=== PATIENT | female | born 1990 | race Hispanic/Latino ===

== ENCOUNTER 2017-02-14 16:30 | Emergency (ER) | payer OTHER ==
--- NOTE | 2017-02-14 16:39 | ED PDOC ---
HPI: Abdomen Time Seen by Provider: 02/14/17 16:38 Chief Complaint (Nursing): Abdominal Pain Chief Complaint (Provider): abdominal pain, vomiting History Per: Patient Additional Complaint(s): 27-year-old female presents to emergency department with generalized abdominal pain and vomiting that started earlier today. She denies any consumption of any food that could've cause stomach upset. She has been unable to keep down anything including sips of water. Patient states that last week her fianc was sick with vomiting and diarrhea. Patient denies any diarrhea at this time. No recent travel. She rates the abdominal pain as 10 out of 10 and describes it as cramping. No associated vaginal bleeding, discharge, dysuria or hematuria, no fever or chills. Past Medical History Reviewed: Historical Data, Nursing Documentation, Vital Signs Vital Signs: Last Vital Signs Temp 98.3 F 02/14/17 16:35 Pulse 121 H 02/14/17 16:35 Resp 21 02/14/17 16:35 BP 110/47 L 02/14/17 16:35 Pulse Ox 100 02/14/17 19:55 - Medical History PMH: No Chronic Diseases - Surgical History Other surgeries: breast augmentation - Family History Family History: States: No Known Family Hx - Living Arrangements Living Arrangements: With Family - Social History Current smoker - smoking cessation education provided: No Alcohol: Social Drugs: Denies - Allergies Allergies/Adverse Reactions: Allergies Allergy/AdvReac Type Severity Reaction Status Date / Time No Known Allergies Allergy Verified 02/14/17 16:34 Review of Systems ROS Statement: Except As Marked, All Systems Reviewed And Found Negative Constitutional: Negative for: Fever, Chills Respiratory: Negative for: Cough Gastrointestinal: Positive for: Nausea, Vomiting, Abdominal Pain. Negative for : Diarrhea, Constipation, Rectal Pain Genitourinary Female: Negative for: Dysuria, Frequency, Incontinence, Hematuria Physical Exam - Reviewed Nursing Documentation Reviewed: Yes Vital Signs Reviewed: Yes - Physical Exam Appears: Positive for: Well, Non-toxic, No Acute Distress Skin: Negative for: Rash Eye Exam: Positive for: Normal appearance, EOMI, PERRL Cardiovascular/Chest: Positive for: Regular Rate, Rhythm Respiratory: Positive for: Normal Breath Sounds Gastrointestinal/Abdominal: Positive for: Tenderness (Mild tenderness in all 4 quadrants with no rebound or guarding, no distention, normoactive bowel sounds in all 4 quadrants) Back: Negative for: L CVA Tenderness, R CVA Tenderness Neurologic/Psych: Positive for: Alert, Oriented - Laboratory Results Result Diagrams: 02/14/17 18:22 02/14/17 18:22 Urine POC: Negative Urine dip results: Positive for: Blood (small), Ketones. Negative for: Leukocyte Esterase, Nitrate, Glucose, Bilirubin, Protein - ECG O2 Sat by Pulse Oximetry: 100 Pulse Ox Interpretation: Normal - Other Rad Abd US X-Ray: Read By Radiologist X-Ray Interpretation: no acute finding Medical Decision Making Medical Decision Makin27 year old with vomiting and abdominal pain Plan: Urine test Urine dip CBC CMP Lipase Abdominal ultrasound IV fluids IV Zofran IV Pepcid IV Toradol Nausea is improved after meds given however patient states that she still has pain that she rates as 4/10. Repeat abdominal exam demonstrates persistent mild diffuse tenderness, CT abdomen and pelvis ordered for further evaluation. Disposition - Clinical Impression Clinical Impression: Abdominal pain - Patient ED Disposition Is Patient to be Admitted: Transfer of Care - Disposition Disposition: Transfer of Care Disposition Time: 20:00 Condition: FAIR Patient Signed Over To: Manasa Gunter Handoff Comments: Case was signed out to KELL Gunter pending CT and final disposition Results - Lab Results Lab Results: 02/14/17 02/14/17 18:22 18:22 WBC 10.3 RBC 4.88 Hgb 15.0 Hct 45.2 MCV 92.6 MCH 30.7 MCHC 33.2 RDW 12.9 Plt Count 145 MPV 10.3 Neut % (Auto) 91.7 H Lymph % (Auto) 3.9 L Doddridge % (Auto) 4.2 Eos % (Auto) 0.1 Baso % (Auto) 0.1 Neut # 9.4 H Lymph # 0.4 L Doddridge # 0.4 Eos # 0.0 Baso # 0.0 Neutrophils % (Manual) 84 H Band Neutrophils % 6 H Lymphocytes % (Manual) 4 L Monocytes % (Manual) 6 Platelet Estimate Slightly decreased L Large Platelets Present Anisocytosis (manual) Slight Macrocytosis (manual) Slight Tear Drop Cells Slight Ovalocytes Slight Sodium 137 Potassium 4.5 Chloride 104 Carbon Dioxide 21 L Anion Gap 17 BUN 18 H Creatinine 0.7 Est GFR ( Amer) > 60 Est GFR (Non-Af Amer) > 60 Random Glucose 102 Calcium 9.1 Total Bilirubin 1.2 AST 40 H ALT 38 Alkaline Phosphatase 39 Total Protein 7.4 Albumin 4.7 Globulin 2.7 Albumin/Globulin Ratio 1.7 Lipase 30
[2017-02-14] MEDS ORDERED: Sodium Chloride 0.9% 1,000 ML IV STA ×2 (17:38→19:55)
[2017-02-14 18:31] LABS: BASO % 0.1 % (0.0-2.0); EOS % 0.1 % (0.0-4.0); HEMATOCRIT 45.2 % (34.0-47.0); LYMPH # 0.4 K/uL (1.0-4.3); LYMPH % 3.9 % (20.0-40.0); MEAN CELL VOLUME 92.6 fl (81.0-99.0); MEAN CORPUSCULAR HEMOGLOBIN 30.7 pg (27.0-31.0); MEAN CORPUSCULAR HGB CONC 33.2 g/dL (33.0-37.0); MEAN PLATELET VOLUME 10.3 fl (7.2-11.7); MONO # 0.4 K/uL (0.0-0.8); MONO % 4.2 % (0.0-10.0); NEUT # 9.4 K/uL (1.8-7.0); NEUT % 91.7 % (50.0-75.0); PLATELET COUNT 145 K/uL (130-400); RED CELL DISTRIBUTION WIDTH 12.9 % (11.5-14.5); WHITE BLOOD COUNT 10.3 K/uL (4.8-10.8)
[2017-02-14 18:41] LABS: ALB/GLOB RATIO 1.7 (1.0-2.1); ALKALINE PHOSPHATASE 39 U/L (38-126); ALT/SGPT 38 U/L (9-52); AST/SGOT 40 U/L (14-36); BILIRUBIN,TOTAL 1.2 mg/dl (0.2-1.3); BLOOD UREA NITROGEN 18 mg/dl (7-17); CALCIUM 9.1 mg/dL (8.4-10.2); CARBON DIOXIDE 21 mmol/L (22-30); CHLORIDE 104 mmol/L (98-107); GFR AFRICAN-AMERICAN > 60; GLUCOSE,RANDOM 102 mg/dL (65-105); LIPASE 30 U/L (23-300); SODIUM 137 mmol/l (132-148); TOTAL PROTEIN 7.4 G/DL (6.3-8.2)
[2017-02-14 18:42] LABS: POTASSIUM 4.5 MMOL/L (3.6-5.0)
--- NOTE | 2017-02-14 19:32 | US ---
EXAM: US Abdomen Complete CLINICAL HISTORY: 27 years old, female; Pain; Abdominal pain; Epigastric; Additional info: Upper abd pain, vomiting TECHNIQUE: Real-time ultrasound of the abdomen (complete) with image documentation. EXAM DATE/TIME: 02/14/2017 5:38 PM COMPARISON: No relevant prior studies available. FINDINGS: Gallbladder: Within normal limits in appearance, without evidence of gallstones, significant gallbladder wall thickening, or pericholecystic fluid. Reportedly negative sonographic Davidson's sign. Common bile duct: Does not appear abnormally dilated, measuring less than 6 mm in diameter. Liver: Within normal limits in appearance. Measures 14 cm in length. Normal flow seen in the main portal vein on color and Doppler imaging. Pancreas: Imaged portions appear unremarkable. Right kidney: Within normal limits in appearance. Measures 10.7 cm in length. No evidence of hydronephrosis. Left kidney: Within normal limits in appearance. Measures 10.2 cm in length. No evidence of hydronephrosis. Spleen: Within normal limits in appearance. Measures 10.2 cm in length. Aorta: Imaged portions appear unremarkable. IVC: Imaged portions appear unremarkable. IMPRESSION: No significant abnormality identified. No evidence of gallstones or cholecystitis. See above for remaining findings.
[2017-02-14 19:41] LABS: NEUTROPHIL 84 % (42-75); TOTAL CELLS COUNTED 100
[2017-02-14 19:43] LABS: LARGE PLATELETS PRESENT
[2017-02-14 20:13] VITALS: BP 106/62; PULSE 97; RESP 18; TEMP 98.4; O2SAT 99
[2017-02-14] MEDS ORDERED: Sucralfate 1 gm/10 ml Oral Susp UD PO STA (23:33)
[2017-02-15] MEDS ORDERED: HYDROmorphone 0.5 mg/0.5 ml ISec IVP STA (00:17)
--- NOTE | 2017-02-15 00:21 | ED PDOC ---
- Laboratory Results Result Diagrams: 02/14/17 18:22 02/14/17 18:22 Urine POC: Negative - ECG O2 Sat by Pulse Oximetry: 99 - Progress ED Course And Treament: MOrphine 2mg x 2;zofran 4mg iv x1 dose pateint has persistent pain carafate 1 gm po x 1 dose dilaudid 0.5mg iv x 1 dose IMPRESSION: - Underdistention versus wall thickening/mild focal gastritis involving the distal stomach. Recommend clinical correlation. - Otherwise, no evidence of significant acute process. - Findings compatible with an involuting cystic lesion in the right ovary. - See above for remaining findings. Thank you for allowing us to participate in the care of your patient Disposition - Clinical Impression Clinical Impression: Abdominal pain - POA Present On Arrival: None - Disposition Referrals: [facility] [Outside] Jamison Elise MD, PhD [Staff Provider] - Disposition: Routine/Home Disposition Time: 00:19 Condition: FAIR Prescriptions: Ondansetron ODT [Zofran ODT] 4 mg PO Q8 PRN #10 odt PRN Reason: Nausea/Vomiting Pantoprazole Sodium [Protonix] 40 mg PO DAILY #14 ect Ranitidine HCl [Zantac 75] 75 mg PO Q12 PRN #14 tablet PRN Reason: Pain, Moderate (4-7) Instructions: Gastritis (ED) Forms: [facility] ED School/Work Excuse
--- NOTE | 2017-02-15 10:34 | CT ---
PROCEDURE: CT Abdomen and Pelvis with contrast HISTORY: diffuse abd pain, vomiting COMPARISON: None available TECHNIQUE: Contrast dose: 90 mL Visipaque 320 Radiation dose: Total exam DLP = 570.62 mGy-cm. This CT exam was performed using one or more of the following dose reduction techniques: Automated exposure control, adjustment of the mA and/or kV according to patient size, and/or use of iterative reconstruction technique. FINDINGS: LOWER THORAX: No visible consolidation, pleural effusion, or pneumothorax. Partially imaged bilateral breast prosthesis. LIVER: Hypoattenuation of the liver compatible with hepatic steatosis. Borderline hepatomegaly. GALLBLADDER AND BILE DUCTS: Unremarkable. PANCREAS: Unremarkable. SPLEEN: Unremarkable. ADRENALS: Unremarkable. KIDNEYS AND URETERS: The kidneys enhance symmetrically. No hydronephrosis or obstructing calculus identified. VASCULATURE: No aortic aneurysm. BOWEL: Stomach is nondistended. Wall thickening involving the distal stomach may be exaggerated by under distention versus mild focal gastritis. Correlate clinically. Lack of oral contrast limits evaluation for bowel pathology. Bowel loops appear within normal limits of caliber without evidence of obstruction. Questionable wall small bowel wall thickening of small bowel loops, in particular the duodenum. Correlate clinically for possibility of enteritis. APPENDIX: The appendix appears within normal limits of caliber. No secondary signs of acute appendicitis. PERITONEUM: No significant free fluid. No definite free air. LYMPH NODES: No bulky adenopathy identified. BLADDER: Unremarkable. REPRODUCTIVE: Uterus is present. 2.9 cm right adnexal cyst, likely ovarian. BONES: No acute osseous abnormality is detected. OTHER FINDINGS: None. IMPRESSION: Small bowel wall thickening of small bowel loops, in particular the duodenum. Correlate clinically for possibility of enteritis. Underdistention versus wall thickening/gastritis involving the distal stomach. Correlate clinically. 2.9 cm right adnexal cyst, likely ovarian. Suggest ultrasound for further evaluation if indicated. Additional findings as above. Preliminary impression was provided by virtual radiologic. Study is been marked for PA review.
== END 2017-02-15 00:58 | disposition home or self-care (01) ==
LOC: H.ER 16:30
DX: R11.2 Nausea with vomiting, unspecified (principal); R10.9 Unspecified abdominal pain